=== PATIENT | male | born 1970 | race Two or more races ===

== ENCOUNTER 2019-01-20 18:25 | Emergency (ER) | payer MEDICAID, OTHER ==
[~2019-01-20] VITALS: Ht 172.7 cm; Wt 90.7 kg
[2019-01-20 19:52] VITALS: BP 163/98
== END 2019-01-20 20:31 | disposition home or self-care (01) ==
LOC: ER 18:25
DX: S13.4XXA Sprain of ligaments of cervical spine, initial encounter (principal); V49.49XA Driver injured in collision with other motor vehicles in traffic accident, initial encounter; Y93.89 Activity, other specified; Y99.8 Other external cause status; Y92.488 Other paved roadways as the place of occurrence of the external cause
CPT/HCPCS: 70450

== ENCOUNTER 2022-08-02 17:12 | Emergency (ER) | payer MEDICAID ==
[~2022-08-02] VITALS: Ht 167.6 cm; Wt 90.6 kg
[2022-08-02 18:42] VITALS: BP 150/96
[2022-08-02] MEDS ORDERED: PENI500T2 PO (20:53)
== END 2022-08-02 21:13 | disposition home or self-care (01) ==
LOC: ER 17:12
DX: J02.0 Streptococcal pharyngitis (principal); I10 Essential (primary) hypertension; E11.9 Type 2 diabetes mellitus without complications; E78.5 Hyperlipidemia, unspecified
CPT/HCPCS: 87804

== ENCOUNTER 2023-09-13 15:04 | Emergency (ER) | payer MEDICAID ==
[~2023-09-13] VITALS: Ht 162.6 cm; Wt 87.4 kg
[~2023-09-13 15:04] MED LIST: PENI500T2 PO
[2023-09-13] MEDS ORDERED: TETANUS-DIPTH-ACEL PERTUSSIS 0.5ML SYR Tdap IM ONE (16:15)
[2023-09-13] MEDS ORDERED: KETOROLAC TROMETH 60MG/2ML VIAL IM ONE (16:15)
[2023-09-13] MEDS ORDERED: IBUP-1455 PO (16:17)
[2023-09-13] MEDS ORDERED: AMOX875T4 PO (16:17)
[2023-09-13 19:40] VITALS: BP 125/80; PULSE 95; RESP 18; TEMP 98.3; O2SAT 97
== END 2023-09-13 19:41 | disposition home or self-care (01) ==
LOC: ER 15:04
DX: S81.852A Open bite, left lower leg, initial encounter (principal); I10 Essential (primary) hypertension; E11.9 Type 2 diabetes mellitus without complications; E78.5 Hyperlipidemia, unspecified; Z79.2 Long term (current) use of antibiotics; W54.0XXA Bitten by dog, initial encounter; Y93.89 Activity, other specified; Y92.89 Other specified places as the place of occurrence of the external cause; Y99.8 Other external cause status
CPT/HCPCS: 82962; 90471; 90715; 96372; 99284; J1885